=== PATIENT | male | born 1980 | race Caucasian/White ===

== ENCOUNTER 2018-01-02 17:28 | Emergency (ER) | payer SELFPAY ==
[2018-01-02 17:45] VITALS: BP 150/75; PULSE 79; RESP 18; TEMP 98.3; O2SAT 99
--- NOTE | 2018-01-02 18:31 | ED PDOC ---
HPI: Psych/Substance Abuse Time Seen by Provider: 01/02/18 17:47 Chief Complaint (Nursing): Psychiatric Evaluation Chief Complaint (Provider): Psychiatric Evaluation History/Exam Limitations: no limitations Additional Complaint(s): Patient is a 37 year old male who presents for psychiatric evaluation due to thoughts of suicide that started last year but have gotten worse within the last week. Patient states he is "not right in the mind" but is unwilling to share any additional details. No physical complaints. Patient denies history of mental illness. Other psychiatric symptoms: (-) hallucinations (auditory or visual), (+) suicidal ideation, (-) homicidal ideation (-) suicidal plan. PMD: no provider Past Medical History Reviewed: Historical Data, Nursing Documentation, Vital Signs Vital Signs: Last Vital Signs Temp 98.3 F 01/02/18 17:43 Pulse 79 01/02/18 17:43 Resp 18 01/02/18 17:43 BP 150/75 01/02/18 17:43 Pulse Ox 99 01/02/18 17:43 - Medical History PMH: No Chronic Diseases - Surgical History Surgical History: No Surg Hx - Family History Family History: States: Unknown Family Hx - Social History Current smoker - smoking cessation education provided: Yes SMOKER/PACKS PER DAY:: 2 Drugs: Cannabis - Allergies Allergies/Adverse Reactions: Allergies Allergy/AdvReac Type Severity Reaction Status Date / Time No Known Allergies Allergy Verified 01/02/18 17:42 Review of Systems ROS Statement: Except As Marked, All Systems Reviewed And Found Negative Psych: Positive for: Suicidal ideation (no homicidal ideation) Physical Exam - Reviewed Nursing Documentation Reviewed: Yes Vital Signs Reviewed: Yes - Physical Exam Comments: GENERAL APPEARANCE: Patient is awake, alert, oriented x 3, in no acute distress. Avoids eye contact. SKIN: Warm, dry; (-) cyanosis ENMT: Mucous membranes moist. Airway patent: (-) stridor. NECK: Supple, FROM HEART AND CARDIOVASCULAR: (-) irregularity CHEST AND RESPIRATORY: (-) rales, (-) rhonchi, (-) wheezes; breath sounds equal. Respirations even and nonlabored. ABDOMEN: Soft, (-) distention, (-) tenderness, (-) guarding. NEURO AND PSYCH: Mental status as above. Affect: flat. (-) facial asymmetry. Gait: steady. Speech: clear. - ECG O2 Sat by Pulse Oximetry: 99 (RA) Pulse Ox Interpretation: Normal Medical Decision Making Medical Decision Making: Initial Time: 17:45 Initial Impression: Psychiatric evaluation Initial Plan: --Crisis evaluation --1:1 observation 1839 Per crisis evaluation, patient to be discharged with the diagnosis of depression per Dr Swenson. Lab/Diagnostic results d/w the patient in great detail. Diagnosis of depression d/w the patient. Based on history, exam and diagnostic results, plan will be for outpatient follow up as directed by crisis. Patient instructed to follow-up with pmd / referral provided / the clinic in 1- 2 days without fail. Return to the emergency room at any time for any new or worsening symptoms. Patient states he fully agrees with and understands discharge instructions. States that he agrees with the plan and disposition. Verbalized and repeated discharge instructions and plan. I have given the patient opportunity to ask any additional questions. --------- -------- Scribe Attestation: Documented by Norman Olivera, acting as a scribe for Cecy Meyer Provider Scribe Attestation: All medical record entries made by the Scribe were at my direction and personally dictated by me. I have reviewed the chart and agree that the record accurately reflects my personal performance of the history, physical exam, medical decision making, and the department course for this patient. I have also personally directed, reviewed, and agree with the discharge instructions and disposition. Disposition - Clinical Impression Clinical Impression: Depression - Patient ED Disposition Is Patient to be Admitted: No Counseled Patient/Family Regarding: Studies Performed, Diagnosis, Need For Followup - Disposition Referrals: [facility] [Outside] Disposition: Routine/Home Disposition Time: 18:40 Condition: STABLE Additional Instructions: The emergency medical care you received today was directed at your acute symptoms. If you were prescribed any medication, please fill it and take as directed. It may take several days for your symptoms to resolve. Return to the Emergency Department if your symptoms worsen, do not improve, or if you have any other problems. Please contact your doctor in 2 days for re-evaluation and follow up / or call one of the physicians/clinics you have been referred to that are listed on the Patient Visit Information form that is included in your discharge packet. Bring any paperwork you were given at discharge with you along with any medications you are taking to your follow up visit. Our treatment cannot replace ongoing medical care by a primary care provider (PCP) outside of the emergency department. Instructions: Depression, Medicines for Depression, Tips for How to Help Your Mood Forms: [facility] ([place]) Print Language: DIVEHI - POA Present On Arrival: None
== END 2018-01-02 18:30 | disposition home or self-care (01) ==
LOC: H.ER 17:28
DX: F32.9 Major depressive disorder, single episode, unspecified (principal)